=== PATIENT | male | born 1995 | race Caucasian/White ===

== ENCOUNTER 2020-04-03 00:41 | Emergency (ER) | payer SELFPAY ==
[2020-04-03] MEDS ORDERED: Sodium Chloride 0.9% 1,000 ML IV ONE (02:25)
[2020-04-03] MEDS ORDERED: Ondansetron 4 MG/2 ML SDV IVPUSH ONE (02:25)
[2020-04-03] MEDS ORDERED: Haloperidol Lactate 5 MG/ML SDV IM ONE (02:25)
[2020-04-03] MEDS ORDERED: Benztropine 1 MG Tab PO STA (02:25)
--- NOTE | 2020-04-03 02:37 | EDM.PDOC ---
ED HPI GENERAL MEDICAL PROBLEM - General Chief Complaint: Headache Stated Complaint: HIT HEAD AT WORK 3 TIMES 2 DAYS AGO NOT GET BETTER Time Seen by Provider: 04/03/20 01:56 Source of Information: Reports: Patient, Significant Other History Limitations: Reports: No Limitations - History of Present Illness INITIAL COMMENTS - FREE TEXT/NARRATIVE: Mr. De Souza is a very pleasant 24-year-old gentleman who, medical records indicate, was seen in this ED on 04/01/2020 after he he banged his head against a hanging metal object 3 times earlier that day, while at work. He was not kno cked unconscious, however, he did subsequently develop a headache. He was found to be hemodynamically stable, afebrile, saturating 100% on room air. His physical exam, including his neurologic exam, was completely normal. He was treated with IV Benadryl, IV Zofran, and IV fluid, felt better, and was discharged home. The patient now returns to the ED stating that after he was discharged, he went home and rested. He states that he felt fine today, then went to work around 16:45. During his shift, he developed a severe posterior headache, sharp in character. He has had nausea with 3 episodes of vomiting. He reports photophobia, but no phonophobia. No visual changes, such as blurry vision, wavy lines, or flashes of lights. No neurologic symptoms, such as tingling, numbness, or weakness. The patient states that he had a similar headache on 04/01/2020, but no other similar types of headaches. Here in the ED today, the patient is found to be hemodynamically stable, afebrile, saturating 98% on room air. Other than his recent headaches with associated symptoms, the patient denies recent fever, chills, sore throat, ear pain, nasal or sinus congestion, cough, dyspnea, chest pain, palpitations, constipation, diarrhea, abdominal pain, urinary symptoms, recent weight gain or weight loss, recent bloody bowel movements or black bowel movements, recent joint aches, or rashes. The patient does not have a PCP. Right Parietal Pain Score (Numeric/FACES): 7 - Related Data Allergies Allergy/AdvReac Type Severity Reaction Status Date / Time No Known Allergies Allergy Verified 04/03/20 01:01 Home Meds: Home Meds Rizatriptan Benzoate [Rizatriptan] 1 tab PO Q2H PRN #3 tab.rapdis 04/03/20 [Rx] Past Medical History Musculoskeletal History: Reports: Fracture (elbow) Psychiatric History: Reports: Depression (untreated) Social & Family History - Tobacco Use Smoking Status *Q: Current Every Day Smoker Years of Tobacco use: 7 Packs/Tins Daily: 0.5 - Caffeine Use Caffeine Use: Reports: Coffee, Soda - Alcohol Use Alcohol Use History: Yes Alcohol Use Frequency: Rarely - Recreational Drug Use Recreational Drug Use: Yes Drug Use in Last 12 Months: Yes Recreational Drug Type: Reports: Marijuana/Hashish (last smoked around Dec 2019) - Living Situation & Occupation Living situation: Reports: Single, with Significant Other (Fianc) Occupation: Employed ([employer]) ED ROS GENERAL - Review of Systems Review Of Systems: Comprehensive ROS is negative, except as noted in HPI. - Physical Exam Exam: See Below Exam Limited By: No Limitations General Appearance: Alert, WD/WN, Mild Distress (wearing sunglasses, removed for my neurologic examination) Eye Exam: Bilateral Eye: EOMI, Normal Inspection, PERRL Ears: Normal External Exam, Normal Canal, Hearing Grossly Normal, Normal TMs Nose: Normal Inspection, Normal Mucosa, No Blood Throat/Mouth: Normal Inspection, Normal Lips, Normal Teeth, Normal Gums, Normal Oropharynx, Normal Voice, No Airway Compromise Head Exam: Atraumatic, Normocephalic Neck: Normal Inspection, Supple, Non-Tender, Full Range of Motion. No: Lymphadenopathy (L), Lymphadenopathy (R) Respiratory/Chest: No Respiratory Distress, Lungs Clear, Normal Breath Sounds, No Accessory Muscle Use, Chest Non-Tender Cardiovascular: Normal Peripheral Pulses, Regular Rate, Rhythm, No Edema, No Gallop, No JVD, No Murmur, No Rub GI/Abdominal: Normal Bowel Sounds, Soft, Non-Tender, No Organomegaly, No Distention, No Abnormal Bruit, No Mass (Male) Exam: Deferred Rectal (Males) Exam: Deferred Neuro Exam (Abbreviated): Alert, Oriented, CN II-XII Intact, Normal Cognition, No Motor/Sensory Deficits Back Exam: Normal Inspection, Full Range of Motion, NT Extremities: Normal Inspection, Normal Range of Motion, No Pedal Edema, Normal Capillary Refill Psychiatric: Normal Affect Skin Exam: Warm, Dry, Intact, Normal Color, No Rash Course - Vital Signs Last Recorded V/S: Last Vital Signs Temp 36.4 C 04/03/20 00:52 Pulse 65 04/03/20 00:52 Resp 20 04/03/20 00:52 BP 114/66 04/03/20 00:52 Pulse Ox 98 04/03/20 00:52 - Orders/Labs/Meds Meds: Medications Discontinued Medications Generic Name Dose Route Start Last Admin Trade Name John PRSwati Reason Stop Dose Admin Benztropine Mesylate 1 mg 04/03/20 02:25 04/03/20 02:38 Cogentin PO 04/03/20 02:26 1 mg ONETIME STA Administration Haloperidol Lactate 5 mg 04/03/20 02:25 04/03/20 02:41 Haldol IM 04/03/20 02:26 5 mg ONETIME ONE Administration Sodium Chloride 1,000 mls @ 999 mls/hr 04/03/20 02:25 04/03/20 02:37 Normal Saline IV 04/03/20 03:25 999 mls/hr ONETIME ONE Administration Ondansetron HCl 4 mg 04/03/20 02:25 04/03/20 02:37 Zofran IVPUSH 04/03/20 02:26 4 mg ONETIME ONE Administration - Re-Assessments/Exams Free Text/Narrative Re-Assessment/Exam: 04/03/20 02:26 As above, the patient bumped his head on a metal object 3 times on 04/01/2020, and was seen in the ED that same day. He states at this time that he developed a headache as a result, although there is no documentation of a headache in the medical record from that day. His medical record documents that his neurologic examination was completely normal, and that his symptoms improved after he was given IV Benadryl, IV Zofran, and IV fluid. He now tells me that he went home and rested, felt fine today, but then, after going to work late this afternoon, he developed a posterior headache, photophobia, and nausea with 3 episodes of vomiting. Here in the ED, his neurologic examination is STONE COLD NORMAL. While the patient denies phonophobia, visual changes, or neurologic symptoms, such as tingling, numbness, or weakness, I suspect that his current headache is due to a migraine, and I am therefore recommending treatment with Haldol, Cogentin, Zofran, and IV fluid. The patient tells me that his mother told him that he should get a CT scan of his head, and during my evaluation, the patient's fianc phoned him and I could hear her telling him that he should insist on getting a CT scan of his head. I very carefully explained to the patient that he does not meet NICE criterion for a CT scan of his head, and even showed him the algorithm, and explained that with a completely normal neurologic examination, the likelihood of finding an abnormality, particularly one that requires intervention, such as neurosurgery, is extraordinarily low, and is outweighed by the potential harm from the radiation of a CT scan, including an increase in the risk of thyroid cancer. Further, a CT scan ordered by me without meeting criteria would not likely be compensated by a payor, and the patient would therefore be expected to pay the bill. One of the documented rationales for the patient not receiving a CT scan of his head on 04/01/2020 was that the patient and his fiance were concerned about finances, because the patient does not have health insurance. 04/03/20 03:30 The patient has been joined by his fiance. He states that he has complete resolution of his headache following the IM Haldol. This essentially confirms that his headache was migrainous in etiology. I will submit a prescription for rizatriptan that the patient can take if he develops another migraine headache. For tonight's purposes, I will have him get plenty of rest in a dark, quiet place and stay adequately hydrated. Departure - Departure Time of Disposition: 03:31 Disposition: Home, Self-Care 01 Condition: Good Clinical Impression: Migraine headache - Discharge Information *PRESCRIPTION DRUG MONITORING PROGRAM REVIEWED*: Not Applicable *COPY OF PRESCRIPTION DRUG MONITORING REPORT IN PATIENT AMRITA: Not Applicable Prescriptions: Rizatriptan Benzoate [Rizatriptan] 1 tab PO Q2H PRN #3 tab.rapdis PRN Reason: Headache Instructions: Migraine Headache Referrals: PCP,None [Primary Care Provider] - Forms: ED Department Discharge Additional Instructions: You were seen in the emergency room for a headache felt in the back of your head, along with sensitivity to light, and nausea with 3 episodes of vomiting, after striking your head 3 times on a metal object on Saturday morning. You were treated with an anti-migraine medicine, with complete resolution of your headache. This essentially confirms that your headache was migrainous in etiology. We recommend that you get plenty of rest tonight in a dark, quiet place. Stay adequately hydrated. A prescription for the anti-migraine medicine rizatriptan (Maxalt) has been sent to the [facility], located just south and across [address] from [facility]. The pharmacy will be open between noon and 4:00 today. Dissolve 1 tablet of rizatriptan in your mouth, like a lozenge, at the earliest sign of a migraine headache. You may repeat after 2 hours, if necessary, to a maximum of 3 tablets within a 24-hour period. If this medicine works well for you, please follow-up with a PCP to get an additional prescription. If any other problems, please do not hesitate to return to the ER. Sepsis Event Note (ED) - Evaluation Sepsis Screening Result: No Definite Risk - Focused Exam Vital Signs: Vital Signs Temp Pulse Resp BP Pulse Ox 04/03/20 00:52 36.4 C 65 20 114/66 98
== END 2020-04-03 03:46 | disposition home or self-care (01) ==
LOC: JD.ED 00:41
DX: G43.909 Migraine, unspecified, not intractable, without status migrainosus (principal); F17.210 Nicotine dependence, cigarettes, uncomplicated
CPT/HCPCS: 96372; 96374; 99283; A9270; J1630; J2405; J7030

== ENCOUNTER 2021-02-04 01:57 | Emergency (ER) | payer SELFPAY ==
[2021-02-04] MEDS ORDERED: Cephalexin 500 MG Cap PO STA (02:17)
--- NOTE | 2021-02-04 02:24 | EDM.PDOC ---
ED HPI GENERAL MEDICAL PROBLEM - General Chief Complaint: Skin Complaint Stated Complaint: SKIN COMPLAINT/FACE Time Seen by Provider: 02/04/21 02:09 Source of Information: Reports: Patient, Significant Other (Girlfriend) History Limitations: Reports: No Limitations - History of Present Illness INITIAL COMMENTS - FREE TEXT/NARRATIVE: Mr. De Souza is a very pleasant 25-year-old gentleman who now presents the ED with mild right facial swelling. He states that he developed what he thought was a pimple over his right zygomatic arch around 3 to 4 days ago. His girlfriend and popped the pimple night, 02/02/2021. Since then, the area surrounding the pimple, including under his right eye, has become swollen and mildly erythematous. No recent fever. Here in the ED, the patient is found to be hemodynamically stable, afebrile, saturating 98% on room air. He appears to be comfortable, in no acute distress. Prior to a few days ago, the patient denies having a recent fever, chills, sore throat, ear pain, nasal or sinus congestion, cough, dyspnea, chest pain, palpitations, nausea, vomiting, constipation, diarrhea, abdominal pain, urinary symptoms, recent weight gain or weight loss, recent bloody bowel movements or black bowel movements, recent joint aches, headaches, or rashes. The patient does not have a PCP. - Related Data Allergies Allergy/AdvReac Type Severity Reaction Status Date / Time No Known Allergies Allergy Verified 02/04/21 02:05 Home Meds: Home Meds cephALEXin [Keflex] 1 cap PO Q6H #20 cap 02/04/21 [Rx] Past Medical History Musculoskeletal History: Reports: Fracture (elbow) Psychiatric History: Reports: Depression (untreated) Social & Family History - Tobacco Use Tobacco Use Status *Q: Current Every Day Tobacco User Years of Tobacco use: 7 Packs/Tins Daily: 0.5 Tobacco Use Comment: Started smoking at 18 yrs old - Caffeine Use Caffeine Use: Reports: Coffee, Energy Drinks, Soda, Tea - Alcohol Use Alcohol Use History: Yes Alcohol Use Frequency: Rarely - Recreational Drug Use Recreational Drug Use: Yes Drug Use in Last 12 Months: Yes Recreational Drug Type: Reports: Marijuana/Hashish (smokes daily) - Living Situation & Occupation Living situation: Reports: Single, with Significant Other (Girlfriend) 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 ED EXAM, SKIN/RASH Exam: See Below Exam Limited By: No Limitations General Appearance: Alert, WD/WN, No Apparent Distress Eye Exam: Bilateral Eye: EOMI, Normal Inspection Ears: Normal External Exam, Hearing Grossly Normal Nose: Normal Inspection Throat/Mouth: Normal Inspection, Normal Lips, Normal Voice, No Airway Compromise Head: Atraumatic, Facial Swelling (Mild swelling over the right zygomatic arch, with subtle associated erythema. In the center of the swelling there appears to be an acne comedone.) Course - Vital Signs Last Recorded V/S: Last Vital Signs Temp 36.3 C 02/04/21 02:02 Pulse 65 02/04/21 02:02 Resp 14 02/04/21 02:02 BP 138/69 02/04/21 02:02 Pulse Ox 98 02/04/21 02:02 - Orders/Labs/Meds Orders: Active Orders 24 hr Category Date Time Status cephALEXin [Keflex] Med 02/04/21 02:17 Stat 500 mg PO ONETIME STA - Re-Assessments/Exams Free Text/Narrative Re-Assessment/Exam: 02/04/21 02:18 As above, patient had an acne comedone develop on his upper right cheek about 3 to 4 days ago, which his girlfriend popped night, after which the surrounding area became swollen. He appears to have mild cellulitis. I will start him on Keflex and submit a prescription for him to complete a 5-day course. Departure - Departure Time of Disposition: 02:19 Disposition: Home, Self-Care 01 Condition: Good Clinical Impression: Cellulitis of face - Discharge Information *PRESCRIPTION DRUG MONITORING PROGRAM REVIEWED*: Not Applicable *COPY OF PRESCRIPTION DRUG MONITORING REPORT IN PATIENT AMRITA: Not Applicable Referrals: PCP,None [Primary Care Provider] - Additional Instructions: You were seen in the emergency room after developing local swelling to your upper right cheek after your girlfriend popped a pimple. Based on your history and physical examination, you are likely suffering from a mild cellulitis. You have been started on the antibiotic cephalexin (Keflex), and a prescription for cephalexin has been sent to the [facility], located just south and across the [address] from [facility]. Take 1 tablet of cephalexin every 6 hours, as prescribed. Finish the entire prescription unless told otherwise by a doctor. Keep the area clean with ordinary soap and water. Do not use antibacterial soap. You may continue to apply anti-acne cream to the pimple, if you choose. If any other problems, please do not hesitate to return to the ER. Sepsis Event Note (ED) - Evaluation Sepsis Screening Result: No Definite Risk - Focused Exam Vital Signs: Vital Signs Temp Pulse Resp BP Pulse Ox 02/04/21 02:02 36.3 C 65 14 138/69 98 - My Orders Last 24 Hours: My Active Orders 02/04/21 02:17 cephALEXin [Keflex] 500 mg PO ONETIME STA - Assessment/Plan Last 24 Hours: My Active Orders 02/04/21 02:17 cephALEXin [Keflex] 500 mg PO ONETIME STA
== END 2021-02-04 02:33 | disposition home or self-care (01) ==
LOC: JD.ED 01:57
DX: L03.211 Cellulitis of face (principal); Z72.0 Tobacco use
CPT/HCPCS: 99283; A9270